=== PATIENT | female | born 1965 | race Caucasian/White ===

== ENCOUNTER 2018-03-24 18:50 | Emergency (ER) | payer BC ==
[2018-03-24 19:26] VITALS: BP 129/78
[2018-03-24] MEDS ORDERED: PHENERGAN WITH CODEINE SYRUP PO ONE (19:41)
[2018-03-24] MEDS ORDERED: DUONEB 0.5-3 MG/3 ml Neb IH ONE ×2 (19:41→19:54)
--- NOTE | 2018-03-24 19:44 | ERPHSYRPT ---
- History of Present Illness Time Seen by Provider: 03/24/18 19:42 Source: patient Exam Limitations: no limitations Patient Subjective Stated Complaint: began 1 week before thanksgiving. cold sx and nasal drainage. this lasted one week. began coughing 2 weeks, temp was 102. achy muscles and decreased appetite. nausea and facial pressure. feels burning in lungs presently Triage Nursing Assessment: diminished bilateral lower lung lobes. pt acting like she has general malaise. no coughing noted at present Physician History: c/o cough chest congestion began 1 week before thanksgiving. cold sx and nasal drainage. this lasted one week. began coughing 2 weeks, temp was 102. achy muscles and decreased appetite. nausea and facial pressure. feels burning in lungs presently Timing/Duration: week(s) Cough Quality/Degree: mild, dry cough Associated Symptoms: fever, chest pain/soreness, cough, nasal congestion, nasal drainage, shortness of breath International travel in last 2 weeks: No Allergies/Adverse Reactions: erythromycin base Allergy (Verified 02/18/16 16:09) Hives venom-honey bee [bee venom (honey bee)] Allergy (Verified 02/18/16 16:09) Home Medications: Cyclobenzaprine HCl 10 mg [Flexeril 10 MG] 10 mg PO TID PRN PRN 06/17/15 [ History] Gabapentin [Neurontin] 100 mg PO TID 06/17/15 [History] Hydrocodone Bit/Acetaminophen [[place] 5-325 Tablet] 1 each PO Q4-6HPRN PRN [History] Chrom Pilar/Brindal Bales [Garcinia Cambogia Tablet] 1 each PO .UNKONWN 06/03/16 [History] Hx Tetanus, Diphtheria Vaccination/Date Given: No Hx Influenza Vaccination/Date Given: No Hx Pneumococcal Vaccination/Date Given: No Immunizations Up to Date: Yes - Review of Systems Constitutional: No Fever, No Chills Eyes: No Symptoms Ears, Nose, & Throat: No Symptoms, Nose Congestion, Nose Discharge, Sinus Drainage Respiratory: Cough, No Cyanosis, No Dyspnea Cardiac: Chest Pain, No Edema, No Syncope Abdominal/Gastrointestinal: No Abdominal Pain, No Nausea, No Vomiting, No Diarrhea Genitourinary Symptoms: No Dysuria Musculoskeletal: No Back Pain, No Neck Pain Skin: No Rash Neurological: No Dizziness, No Focal Weakness, No Sensory Changes Psychological: No Symptoms Endocrine: No Symptoms All Other Systems: Reviewed and Negative - Past Medical History Pertinent Past Medical History: Yes Neurological History: No Pertinent History ENT History: No Pertinent History Cardiac History: No Pertinent History Respiratory History: No Pertinent History Endocrine Medical History: No Pertinent History Musculoskeletal History: Other GI Medical History: No Pertinent History History: No Pertinent History Psycho-Social History: Depression Other Medical History: BACK PAIN, hysterectomy - Past Surgical History Past Surgical History: Yes Neuro Surgical History: No Pertinent History Cardiac: No Pertinent History Respiratory: No Pertinent History Gastrointestinal: No Pertinent History Genitourinary: No Pertinent History Musculoskeletal: No Pertinent History Female Surgical History: Hysterectomy Other Surgical History: facial surgery, menicus tear right tear, laproscopy in abd, tonsils - Social History Smoking Status: Former smoker How long have you smoked: YRS Exposure to second hand smoke: No Drug Use: none Patient Lives Alone: No - Female History Hx Last Menstrual Period: hyst Hx Now: No - Nursing Vital Signs Nursing Vital Signs: Initial Vital Signs Temperature 98 F 03/24/18 19:07 Pulse Rate 65 03/24/18 19:07 Respiratory Rate 18 03/24/18 19:07 Blood Pressure 129/78 03/24/18 19:07 O2 Sat by Pulse Oximetry 100 03/24/18 19:07 Pain Scale Pain Intensity 6 - Physical Exam General Appearance: no apparent distress, alert Eye Exam: PERRL/EOMI, eyes nml inspection Ears, Nose, Throat Exam: normal ENT inspection, TMs normal, pharynx normal, moist mucous membranes Neck Exam: normal inspection, non-tender, supple, full range of motion Respiratory Exam: diminished breath sounds, No respiratory distress Cardiovascular Exam: regular rate/rhythm, normal heart sounds Gastrointestinal/Abdomen Exam: soft, No tenderness Back Exam: normal inspection, No CVA tenderness, No vertebral tenderness Extremity Exam: normal inspection, normal range of motion Neurologic Exam: alert, oriented x 3, cooperative, normal mood/affect, sensation nml, No motor deficits Skin Exam: normal color, warm, dry, No rash Lymphatic Exam: No adenopathy SpO2: 100 Oxygen Delivery: Room Air - Course Nursing assessment & vital signs reviewed: Yes - Radiology Exams Chest X-ray Interpretation: Reviewed by me (right lower lobe infiltrate) Ordered Tests: Active Orders 24 hr Category Date Time Status CHEST 2 VIEWS (PA AND LAT) Stat Exams 03/24/18 19:40 Taken CBC W DIFF Stat Lab 03/24/18 20:35 Completed CMP Stat Lab 03/24/18 20:35 Received TROPONIN Q3H Lab 03/24/18 20:35 Received TROPONIN Q3H Lab 03/24/18 22:45 Ordered TROPONIN Q3H Lab 03/25/18 01:45 Ordered TROPONIN Q3H Lab 03/25/18 04:45 Ordered TROPONIN Q3H Lab 03/25/18 07:45 Ordered Peak Expiratory Flow Rate ONCE RT 03/24/18 20:15 Active Respiratory Therapy Assessment DAILY RT 03/24/18 20:15 Active Medication Summary Discontinued Medications Generic Name Dose Route Start Last Admin Trade Name Freq PRN Reason Stop Dose Admin Albuterol/Ipratropium 3 ml 03/24/18 19:41 03/24/18 20:09 Duoneb 0.5-3 Mg/3 Ml Neb IH 03/24/18 19:42 3 ml STAT ONE Administration Albuterol/Ipratropium Confirm 03/24/18 19:54 Duoneb 0.5-3 Mg/3 Ml Neb Administered 03/24/18 19:55 Dose 3 ml IH .STK-MED ONE Ceftriaxone Sodium 1,000 mg 03/24/18 20:14 03/24/18 20:38 Rocephin 1000 Mg Inj IM 03/24/18 20:15 1,000 mg STAT ONE Administration Ceftriaxone Sodium Confirm 03/24/18 20:30 Rocephin 1000 Mg Inj Administered 03/24/18 20:31 Dose 1,000 mg .ROUTE .STK-MED ONE Lidocaine HCl Confirm 03/24/18 20:31 Xylocaine 1% Hcl 20 Ml Mdv Administered 03/24/18 20:32 Dose 1 ml .ROUTE .STK-MED ONE Promethazine HCl/Codeine 10 ml 03/24/18 19:41 03/24/18 20:37 Phenergan With Codeine Syrup PO 03/24/18 19:42 10 ml STAT ONE Administration Lab/Rad Data: Laboratory Result Diagrams 03/24/18 20:35 Laboratory Results 03/24/18 Range/Units 20:35 WBC 7.2 (4.0-10.5) K/mm3 RBC 4.38 (4.1-5.4) M/mm3 Hgb 12.7 (12.0-16.0) gm/dl Hct 40.8 (35-47) % MCV 93.2 (78-100) fl MCH 29.0 (26-32) pg MCHC 31.1 L (32-36) g/dl RDW 13.0 (11.5-14.0) % Plt Count 205 (150-450) K/mm3 MPV 11.4 H (6-9.5) fl Gran % 47.0 (36.0-66.0) % Eos # (Auto) 0.46 (0-0.5) Absolute Lymphs (auto) 2.73 (1.0-4.6) Absolute Monos (auto) 0.55 (0.0-1.3) Lymphocytes % 38.1 (24.0-44.0) % Monocytes % 7.7 (0.0-12.0) % Eosinophils % 6.4 H (0.00-5.0) % Basophils % 0.8 (0.0-0.4) % Absolute Granulocytes 3.36 (1.4-6.9) Basophils # 0.06 (0-0.4) - Progress Progress: improved Air Movement: good Blood Culture(s) Obtained: No Antibiotics given: Yes Counseled pt/family regarding: lab results, diagnosis, need for follow-up, rad results - Departure Time of Disposition: 20:21 Departure Disposition: Home Clinical Impression: Right lower lobe pneumonia Qualifiers: Pneumonia type: due to unspecified organism Qualified Code(s): J18.1 - Lobar pneumonia, unspecified organism Condition: Stable Critical Care Time: Yes Critical Care Time(excluding separately billable procedures): 30-74 minutes Referrals: KERI PRADHAN, EQUIPMENT SCHEDULER [Primary Care Provider] - Instructions: Pneumonia in Adults Additional Instructions: BOZENAANA PEARL was seen on 03/24/18 n the Emergency Room. At that time you were treated for an emergent condition, during your visit Laboratory, Radiology and/or other procedures may have been ordered. It is very important that you follow-up with your Primary Care Physician KERI PRADHAN within the next 24- 48 hours to review your Emergency Room visit and the final results of testing that was ordered. Some test results such as Urine Cultures, Blood Cultures, and other cultures if ordered will not be finalized for 24-48 hours. If you do not have a Primary Care Provider please call the medical records department at [phone] to obtain a copy of your results or you may sign into our patient portal to obtain these results by visiting us @ [email or web address] and completing the following steps: 1. Click on the Patient Portal link 2. Click the Patient Self Enrollment Link to complete the enrollment form and entering your 3. Once the enrollment form is completed you will receive an email with a temporary ID and password at the email address you provided. 4. Next choose a user name and password. Your user name must be at least 4 characters long and your password must be at least 4 characters long. 5. Choose a security question from the list and provide your answer to the question. If you already have signed into the Health Portal you may access your Health Care Information 01/11 by the following steps: 1. Login to our website @ [email or web address] 2. Enter your original user name and password. FAQS The [facility] Health Portal is an online tool that contains your Lab Results, Radiology Reports, Visit History, Discharge Instructions and Health Summary Lab and Radiology Results will not be available for 72 hours on the portal. The Portal is a secure site, passwords are encryted and URLs are re-written so they cannot be copied and pasted. You and authorized family members are the only ones who can access your Portal. Also there is a timeout feature that protects your information if you leave the Portal page open. If you have technical difficulty please use the Contact Us link on the page this will allow you to submit any questions you have regarding the Portal or you may contact the Medical Record Department at [phone]. Forms: Work/School Release Form Prescriptions: Amoxicillin/Potassium Clav [Augmentin Xr 1,000-62.5 Tab] 1 each PO BID #15 tab.er.12h Guaifenesin/Codeine Phosphate [Robitussin AC Syrup] 5 ml PO QID #118 ml
[2018-03-24] MEDS ORDERED: Rocephin 1000 MG INJ IM ONE (20:14)
[2018-03-24 20:26] VITALS: PULSE 66
[2018-03-24] MEDS ORDERED: Rocephin 1000 MG INJ ONE (20:30)
[2018-03-24] MEDS ORDERED: XYLOCAINE 1% HCL 20 ML MDV ONE (20:31)
[2018-03-24 20:42] LABS: BASOPHIL % 0.8 % (0.0-0.4); Basophil (Absolute #) 0.06 (0-0.4); Eosinophil % 6.4 % (0.00-5.0); Eosinophil (Absolute #) 0.46 (0-0.5); Granulocyte Absolute (ANC) 3.36 (1.4-6.9); Hematocrit 40.8 % (35-47); Hemoglobin 12.7 gm/dl (12.0-16.0); Lymphocyte (Absolute #) 2.73 (1.0-4.6); Lymphocytes % 38.1 % (24.0-44.0); Mean Cell Volume 93.2 fl (78-100); Mean Corpuscular Hgb Concent. 31.1 g/dl (32-36); Mean Platelet Volume 11.4 fl (6-9.5); Monocyte (Absolute #) 0.55 (0.0-1.3); Monocytes % 7.7 % (0.0-12.0); Platelet Count 205 K/mm3 (150-450); Red Blood Count 4.38 M/mm3 (4.1-5.4); White Blood Count 7.2 K/mm3 (4.0-10.5)
[2018-03-24 20:59] LABS: ALKALINE PHOSPHATASE 83 U/L (38-126); ANION GAP 11.3 MEQ/L (5-15); BLOOD UREA NITROGEN 17 mg/dL (7-17); CHLORIDE 104 mmol/L (98-107); Calcium 8.9 mg/dL (8.4-10.2); Carbon Dioxide 26 mmol/L (22-30); Glucose 94 mg/dL (74-106); Potassium 4.1 mmol/L (3.5-5.1); SGOT/AST 23 U/L (14-36); SGPT/ALT 14 U/L (0-35); SODIUM 137 mmol/L (137-145); Total Protein 7.3 g/dL (6.3-8.2)
[2018-03-24 21:18] VITALS: O2SAT 99
--- NOTE | 2018-03-25 08:30 | XRAY ---
Indication: Flulike symptoms. Short of breath and chest soreness. Comparison: None PA/lateral chest demonstrates minimal bibasilar atelectasis/scarring and tiny right base calcified granuloma. Remaining heart, lungs, and bony thorax unremarkable.
== END 2018-03-24 21:17 | disposition home or self-care (01) ==
LOC: ED 18:50
DX: J18.9 Pneumonia, unspecified organism (principal); Z79.899 Other long term (current) drug therapy
CPT/HCPCS: 36415; 71046; 80053; 84484; 85025; 94150; 94640; 96372; 99284; J0696; A9270-GY

== ENCOUNTER 2018-03-26 13:40 | Emergency (ER) | payer BC ==
[2018-03-26] MEDS ORDERED: TORAdol 30 mg Injection ONE (14:58)
[2018-03-26] MEDS ORDERED: TORAdol 30 mg Injection IM ONE (14:58)
--- NOTE | 2018-03-26 15:32 | ERPHSYRPT ---
- History of Present Illness Time Seen by Provider: 03/26/18 14:13 Source: patient, family Exam Limitations: no limitations Patient Subjective Stated Complaint: pt here fjor left lower arm pain since tuesday, she was in er for pneumonia, pt had blood drawn and she states she was stuck 2-3 times in that arm Triage Nursing Assessment: pt alert, walked in, resp easy, skin w.d.p, left hand with normal range of momvement, hand warm, nailbeds pink,radial pulse strong Physician History: PATIENT HAS PNEUMONIA AND HAD RECENT BLOOD DRAW LAST WEEK; NOW HAS PAIN IN LEFT ARM DISTAL AND PROXIMAL TO BLOOD DRAW; NO FEVER; NO cp OR SOB; NO PRIOR HX; RIGHT HANDED Occurred: yesterday Method of Injury: unknown Quality: constant, aching Severity of Pain-Max: moderate Severity of Pain-Current: moderate Extremities Pain Location: arm: left, elbow: left, forearm: left Modifying Factors: Improves With: movement (AFFRAVATES), pain medication (HELPS) Associated Symptoms: none Allergies/Adverse Reactions: erythromycin base Allergy (Verified 03/26/18 14:22) Hives venom-honey bee [bee venom (honey bee)] Allergy (Verified 03/26/18 14:22) Home Medications: Gabapentin [Neurontin] 100 mg PO TID 06/17/15 [History] Hx Tetanus, Diphtheria Vaccination/Date Given: No Hx Influenza Vaccination/Date Given: No Hx Pneumococcal Vaccination/Date Given: No Immunizations Up to Date: Yes - Review of Systems Constitutional: No Symptoms Eyes: No Symptoms Ears, Nose, & Throat: No Symptoms Respiratory: Cough, No Cyanosis, No Dyspnea, No Wheezing Cardiac: No Chest Pain, No Palpitations, No Syncope Abdominal/Gastrointestinal: No Abdominal Pain, No Nausea, No Vomiting, No Diarrhea Genitourinary Symptoms: No Symptoms Musculoskeletal: Arthralgias (LEFT ARM) Skin: No Symptoms Neurological: No Symptoms Psychological: No Symptoms Endocrine: No Symptoms Hematologic/Lymphatic: No Symptoms Immunological/Allergic: No Symptoms - Past Medical History Pertinent Past Medical History: Yes Neurological History: No Pertinent History ENT History: No Pertinent History Cardiac History: No Pertinent History Respiratory History: No Pertinent History Endocrine Medical History: No Pertinent History Musculoskeletal History: Other GI Medical History: No Pertinent History History: No Pertinent History Psycho-Social History: Depression Other Medical History: BACK PAIN, hysterectomy - Past Surgical History Past Surgical History: Yes Neuro Surgical History: No Pertinent History Cardiac: No Pertinent History Respiratory: No Pertinent History Gastrointestinal: No Pertinent History Genitourinary: No Pertinent History Musculoskeletal: No Pertinent History Female Surgical History: Hysterectomy Other Surgical History: facial surgery, menicus tear right tear, laproscopy in abd, tonsils - Social History Smoking Status: Former smoker How long have you smoked: YRS Exposure to second hand smoke: No Alcohol Use: None Drug Use: none Patient Lives Alone: No Significant Family History: no pertinent family hx - Female History Hx Last Menstrual Period: post Hx Now: No - Nursing Vital Signs Nursing Vital Signs: Initial Vital Signs Temperature 97.0 F 03/26/18 14:17 Pulse Rate 73 03/26/18 14:17 Respiratory Rate 18 03/26/18 14:17 Blood Pressure 119/69 03/26/18 14:17 O2 Sat by Pulse Oximetry 98 03/26/18 14:17 Pain Scale Pain Intensity 5 - Physical Exam General Appearance: mild distress, alert Eyes, Ears, Nose, Throat Exam: normal ENT inspection, TMs normal, pharynx normal , moist mucous membranes Neck Exam: normal inspection, non-tender, supple, full range of motion Cardiovascular/Respiratory Exam: chest non-tender, normal breath sounds, regular rate/rhythm, heart sounds normal, no JVD, no M/R/G, no respiratory distress Abdominal Exam: non-tender, soft, no organomegaly Back Exam: normal inspection, normal range of motion, No CVA tenderness Shoulder Exam: normal inspection, non-tender, no evidence of injury, normal ROM (WITH DISCOMFORT) Elbow/Forearm Exam: normal inspection, non-tender, normal ROM, No no evidence of injury (EVIDENCE OF LOCAL BLOOD DRAW; NO REDNESS; NO DRAINGE; NO SWELLING; NO LYMPHANGITIS OR ADENITIS) Wrist Exam: normal inspection, non-tender, no evidence of injury, normal ROM Hand Exam: normal inspection, non-tender, no evidence of injury, normal ROM DTR - Upper Extremity Exam: bicep (R): 4+, bicep (L): 4+ Neuro/Tendon Exam: normal sensation, normal motor functions, normal tendon functions, responds to pain, no evidence tendon injury Mental Status Exam: alert, oriented x 3, cooperative Skin Exam: normal color, warm, dry, No rash, No petechiae SpO2 Interpretation: normal SpO2: 99 Oxygen Delivery: Room Air - Course Nursing assessment & vital signs reviewed: Yes EKG Interpreted by Me: RATE (67), Sinus Rhythm, Left Brule Deviation, NORMAL INTERVALS, NORMAL QRS, NORMAL ST-T Rhythm Strip: Rate (67), Normal Sinus Rhythm Ordered Tests: Active Orders 24 hr Category Date Time Status EKG-ER Only STAT Care 03/26/18 14:31 Active Pulse Oximetry (ED) STAT Care 03/26/18 14:31 Active Re-Check Vital Signs STAT Care 03/26/18 14:31 Active Medication Summary Discontinued Medications Generic Name Dose Route Start Last Admin Trade Name Freq PRN Reason Stop Dose Admin Ketorolac Tromethamine 30 mg 03/26/18 14:58 03/26/18 15:01 Toradol 30 Mg Injection IM 03/26/18 14:59 30 mg STAT ONE Administration Ketorolac Tromethamine Confirm 03/26/18 14:58 Toradol 30 Mg Injection Administered 03/26/18 14:59 Dose 30 mg .ROUTE .STK-MED ONE - Progress Progress: improved, re-examined (AFTER MEDS AND EKG) Progress Note: 03/26/18 15:31 ekg DONE FOR ATYPICAL PRESENTATION AND WNL; GAVE TORADOL iM AND GOOD RELEIF; RECHECKED WITH AT BEDSIDE AND INSTRUCTIONS GIVEN Counseled pt/family regarding: diagnosis, need for follow-up - Departure Time of Disposition: 15:32 Departure Disposition: Home Clinical Impression: Arthralgia of left upper arm Condition: Stable Critical Care Time: No Referrals: SHERRI REID SIGNWRITER [Primary Care Provider] - Instructions: Arthritis and Exercise Additional Instructions: REST; Follow-up with family doctor as directed. Call for appointment. Return if any problems. If you smoke please stop. Call or follow up with your family doctor for assistance if you need it to stop. Please wear your seatbelt when driving. Have a nice day. Thank you for allowing us to participate in your care today. :o) Dr Cruz Boykin Prescriptions: Naproxen Sodium [Naproxen Sodium Ds] 550 mg PO Q8HPRN PRN #14 tablet PRN Reason: Pain
[2018-03-26 15:48] VITALS: BP 130/70; PULSE 78; O2SAT 98
== END 2018-03-26 15:49 | disposition home or self-care (01) ==
LOC: ED 13:40
DX: M79.632 Pain in left forearm (principal); M25.522 Pain in left elbow
CPT/HCPCS: 93005; 96372; 99284; J1885

== ENCOUNTER 2018-06-22 16:10 | Emergency (ER) | payer BC ==
[2018-06-22] MEDS ORDERED: BABY ASPIRIN 81 MG CHEW PO ONE (16:32)
[2018-06-22] MEDS ORDERED: TORAdol 30 mg Injection IV ONE (16:35)
--- NOTE | 2018-06-22 16:41 | ERPHSYRPT ---
<ANTHONY CONTRERAS HANNA - Last Filed: 06/22/18 19:00> - History of Present Illness Time Seen by Provider: 06/22/18 16:35 Historian: patient Exam Limitations: no limitations Patient Subjective Stated Complaint: ONSET CHEST PAIN AT 0330 TODAY. ALSO HAD DIAPHORESIS. STATES PAIN LET UP THIS AM AND THEN CAME BACK. Triage Nursing Assessment: TO ROOM PER W/C. SKIN W/D, COLOR NORMAL, RESP EASY. PATIENT HOLDING CHEST UNDER LEFT BREAST. MOANING OCCASIONALLY. Physician History: 53-year-old white female arrives with complaint of pain like a pulsating sensation in her left anterior chest worse with breathing symptoms since 2:00 this morning began while patient was watching TV. She states she is not short of breath but has pain with breathing she also states she is having nauseousness she has not had a cough. Past medical history includes depression, chronic back pain, pneumonia Past surgical history includes hysterectomy, facial surgery, meniscus surgery on the right, laparoscopy, tonsils Social history patient is a former smoker she denies drug or alcohol use. Timing/Duration: today (2 AM this morning) Activities at Onset: other (watching TV) Quality: other (feels like a pulsation) Location: other (Left anterior chest) Chest Pain Radiation: no radiation Severity of Pain-Max: moderate Severity of Pain-Current: moderate Modifying Factors: Improves With: other (Pain worse with breathing) Associated Symptoms: nausea, hurts to breathe, diaphoresis, No vomiting, No palpitations, No heartburn, No abdominal pain, No shortness of breath, No cough , No chills, No fever, No fatigue, No weakness, No swelling/lump in chest, No syncope, No rash, No headache, No dizziness, No edema, No back pain Prior Chest Pain/Cardiac Workup: no prior chest pain Nitro Today/Relief: no nitro taken today Aspirin Treatment Today: 81 mg x 4, provided by ED Allergies/Adverse Reactions: erythromycin base Allergy (Verified 06/22/18 16:30) Hives venom-honey bee [bee venom (honey bee)] Allergy (Verified 06/22/18 16:40) Home Medications: Gabapentin [Neurontin] 100 mg PO TID 06/17/15 [History] Albuterol Sulfate Mdi [Proair Hfa MDI] 1 puff IH Q4HPRN PRN 06/22/18 [ History] Buprenorphine [Butrans] 1 ea TOP WEEKLY 06/22/18 [History] Gabapentin [Gralise] 600 mg PO TID 06/22/18 [History] Levothyroxine Sodium 50 mcg PO DAILY 06/22/18 [History] Hx Tetanus, Diphtheria Vaccination/Date Given: Yes Hx Influenza Vaccination/Date Given: Yes Hx Pneumococcal Vaccination/Date Given: No - Review of Systems Constitutional: No Fever, No Chills Eyes: No Symptoms Ears, Nose, & Throat: No Symptoms Respiratory: Other (pain with breathing left chest), No Cough, No Cyanosis, No Dyspnea, No Dyspnea on Exertion (WHITE), No Stridor, No Wheezing Cardiac: Chest Pain (Pain like pulsation left anterior chest worse with breathing), No Edema, No Palpitations, No Syncope, No Orthopnea Abdominal/Gastrointestinal: Nausea, No Abdominal Pain, No Vomiting, No Diarrhea , No Constipation, No Hematemesis, No Hematochezia, No Melena, No Dysphagia, No Appetite Changes Genitourinary Symptoms: No Dysuria Musculoskeletal: No Back Pain, No Neck Pain Skin: No Rash Neurological: No Dizziness, No Focal Weakness, No Sensory Changes Psychological: No Symptoms Endocrine: No Symptoms All Other Systems: Reviewed and Negative - Past Medical History Pertinent Past Medical History: Yes Neurological History: No Pertinent History ENT History: No Pertinent History Cardiac History: No Pertinent History Respiratory History: No Pertinent History Endocrine Medical History: Hypothyroidism Musculoskeletal History: Other GI Medical History: No Pertinent History History: No Pertinent History Psycho-Social History: Depression Other Medical History: BACK PAIN, hysterectomy - Past Surgical History Past Surgical History: Yes Neuro Surgical History: No Pertinent History Cardiac: No Pertinent History Respiratory: No Pertinent History Gastrointestinal: No Pertinent History Genitourinary: No Pertinent History Musculoskeletal: No Pertinent History Female Surgical History: Hysterectomy Other Surgical History: facial surgery, menicus tear right tear, laproscopy in abd, tonsils - Social History Smoking Status: Former smoker How long have you smoked: YRS Exposure to second hand smoke: No Alcohol Use: None Drug Use: none Patient Lives Alone: No Significant Family History: no pertinent family hx - Female History Hx Now: No - Nursing Vital Signs Nursing Vital Signs: Initial Vital Signs Temperature 96.4 F 06/22/18 16:20 Pulse Rate 58 L 06/22/18 16:20 Respiratory Rate 16 06/22/18 16:20 Blood Pressure 113/72 06/22/18 16:20 O2 Sat by Pulse Oximetry 99 06/22/18 16:20 Pain Scale Pain Intensity 6 - Physical Exam General Appearance: moderate distress Eye Exam: PERRL/EOMI, eyes nml inspection Ears, Nose, Throat Exam: normal ENT inspection, moist mucous membranes Neck Exam: normal inspection, non-tender, supple, full range of motion Respiratory Exam: lungs clear, airway intact, other (pain with breathing left anterior chest), No chest tenderness, No respiratory distress, No diminished breath sounds, No accessory muscle use, No prolonged expirations, No crackles/ rales, No rhonchi, No wheezing Cardiovascular Exam: regular rate/rhythm, normal heart sounds, capillary refill <2 sec Gastrointestinal/Abdomen Exam: soft, No tenderness, No mass Back Exam: normal inspection, No CVA tenderness, No vertebral tenderness Extremity Exam: normal inspection, normal range of motion Neurologic Exam: alert, oriented x 3, cooperative, 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 Compared to March 26, 2018) - Radiology Exams Chest X-ray Interpretation: Discussed w/ radiologist (chest x-ray: Impression: Portable chest remains clear with incidental right base calcified granuloma. Heart and mediastinal structures within normal limits. Bony thorax intact. No new/acute findings.) Ordered Tests: Active Orders 24 hr Category Date Time Status Dobie Man STAT Care 06/22/18 16:33 Active EKG-ER Only STAT Care 06/22/18 16:32 Active IV Insertion STAT Care 06/22/18 16:32 Active Pulse Oximetry (ED) STAT Care 06/22/18 16:32 Active CHEST 1 VIEW (PORTABLE) Stat Exams 06/22/18 16:43 Completed AMYLASE Stat Lab 06/22/18 16:45 Completed CBC W DIFF Stat Lab 06/22/18 16:45 Completed CMP Stat Lab 03/14/19 16:45 Completed D-DIMER QUANTITATION Stat Lab 06/22/18 16:45 Completed LIPASE Stat Lab 06/22/18 16:45 Completed PROTIME WITH INR Stat Lab 06/22/18 16:45 Completed PTT Stat Lab 06/22/18 16:45 Completed TROPONIN Q3H Lab 06/22/18 16:45 Completed TROPONIN Q3H Lab 06/22/18 19:58 Completed TROPONIN Q3H Lab 06/22/18 22:45 Ordered TROPONIN Q3H Lab 06/23/18 01:45 Ordered TROPONIN Q3H Lab 06/23/18 04:45 Ordered Medication Summary Discontinued Medications Generic Name Dose Route Start Last Admin Trade Name Freq PRN Reason Stop Dose Admin Aspirin 324 mg 06/22/18 16:32 06/22/18 16:48 Baby Aspirin 81 Mg Chew PO 06/22/18 16:33 324 mg STAT ONE Administration Aspirin Confirm 06/22/18 16:46 Baby Aspirin 81 Mg Chew Administered 06/22/18 16:47 Dose 324 mg .ROUTE .STK-MED ONE Ketorolac Tromethamine 30 mg 06/22/18 16:35 06/22/18 16:47 Toradol 30 Mg Injection IV 06/22/18 16:36 30 mg STAT ONE Administration Ketorolac Tromethamine Confirm 06/22/18 16:46 Toradol 30 Mg Injection Administered 06/22/18 16:47 Dose 30 mg .ROUTE .STK-MED ONE Lab/Rad Data: Laboratory Result Diagrams 06/22/18 16:45 06/22/18 16:45 Laboratory Results 06/22/18 06/22/18 06/22/18 Range/Units 19:58 16:45 16:45 WBC (4.0-10.5) K/mm3 RBC (4.1-5.4) M/mm3 Hgb (12.0-16.0) gm/dl Hct (35-47) % MCV (78-100) fl MCH (26-32) pg MCHC (32-36) g/dl RDW (11.5-14.0) % Plt Count (150-450) K/mm3 MPV (6-9.5) fl Gran % (36.0-66.0) % Eos # (Auto) (0-0.5) Absolute Lymphs (auto) (1.0-4.6) Absolute Monos (auto) (0.0-1.3) Lymphocytes % (24.0-44.0) % Monocytes % (0.0-12.0) % Eosinophils % (0.00-5.0) % Basophils % (0.0-0.4) % Absolute Granulocytes (1.4-6.9) Basophils # (0-0.4) PT 12.1 (9.95-12.35) SECONDS INR 1.04 (0.8-3.0) APTT 29.4 (25.3-37.0) SECONDS D-Dimer [facility] Sodium (137-145) mmol/L Potassium (3.5-5.1) mmol/L Chloride (98-107) mmol/L Carbon Dioxide (22-30) mmol/L Anion Gap (5-15) MEQ/L BUN (7-17) mg/dL Creatinine (0.52-1.04) mg/dL Estimated GFR ML/MIN Glucose (74-106) mg/dL Calcium (8.4-10.2) mg/dL Total Bilirubin (0.2-1.3) mg/dL AST (14-36) U/L ALT (0-35) U/L Alkaline Phosphatase (38-126) U/L Troponin I < 0.012 < 0.012 (0.000-0.034) ng/mL Serum Total Protein (6.3-8.2) g/dL Albumin (3.5-5.0) g/dL Amylase (30-110) U/L Lipase (23-300) U/L 06/22/18 06/22/18 Range/Units 16:45 16:45 WBC 6.5 (4.0-10.5) K/mm3 RBC 4.62 (4.1-5.4) M/mm3 Hgb 13.4 (12.0-16.0) gm/dl Hct 42.6 (35-47) % MCV 92.2 (78-100) fl MCH 29.0 (26-32) pg MCHC 31.5 L (32-36) g/dl RDW 13.3 (11.5-14.0) % Plt Count 223 (150-450) K/mm3 MPV 11.0 H (6-9.5) fl Gran % 49.3 (36.0-66.0) % Eos # (Auto) 0.66 H (0-0.5) Absolute Lymphs (auto) 2.06 (1.0-4.6) Absolute Monos (auto) 0.50 (0.0-1.3) Lymphocytes % 31.7 (24.0-44.0) % Monocytes % 7.7 (0.0-12.0) % Eosinophils % 10.2 H (0.00-5.0) % Basophils % 1.1 (0.0-0.4) % Absolute Granulocytes 3.21 (1.4-6.9) Basophils # 0.07 (0-0.4) PT (9.95-12.35) SECONDS INR (0.8-3.0) APTT (25.3-37.0) SECONDS D-Dimer Sodium 140 (137-145) mmol/L Potassium 4.2 (3.5-5.1) mmol/L Chloride 102 (98-107) mmol/L Carbon Dioxide 30 (22-30) mmol/L Anion Gap 12.6 (5-15) MEQ/L BUN 23 H (7-17) mg/dL Creatinine 0.92 (0.52-1.04) mg/dL Estimated GFR > 60.0 ML/MIN Glucose 86 (74-106) mg/dL Calcium 9.7 (8.4-10.2) mg/dL Total Bilirubin 0.70 (0.2-1.3) mg/dL AST 25 (14-36) U/L ALT 18 (0-35) U/L Alkaline Phosphatase 76 (38-126) U/L Troponin I (0.000-0.034) ng/mL Serum Total Protein 7.7 (6.3-8.2) g/dL Albumin 4.3 (3.5-5.0) g/dL Amylase 84 (30-110) U/L Lipase 49 (23-300) U/L - Progress Progress: improved Air Movement: fair Progress Note: 06/22/18 16:41 This is a 53-year-old white female with history of depression, chronic back pain , pneumonia. Patient arrives with complaint of pain in the left anterior chest described as pulsating worse with breathing which began while watching TV this morning around 2:00 she is not short of breath she states she has not been coughing she is nauseous. Patient in moderate distress. On physical examination patient is alert oriented 3 HEENT within normal limits neck is supple lungs are clear but there is pain with breathing on the left anterior chest. Heart is regular rate and rhythm without murmur extremities full range of motion pulsatile symmetrical 2 over 4 abdomen soft nontender nondistended positive bowel sounds. EKG sinus bradycardia 53 bpm normal axis no acute ST or T wave changes are noted EKG is compared to March 26, 2018. Patient is on a Butran patch which she receives for her chronic back pain. Patient is given aspirin 324 mg orally will also give patient Toradol 30 mg IV. Awaiting CBC CMP troponin d-dimer and chest x-ray. 06/22/18 18:40 Patient improved after aspirin 324 mg and Toradol 30 mg IV. Patient's EKG sinus bradycardia 53 bpm normal axis no acute ST or T wave changes are noted patient's chest x-ray chest remains clear with incidental right base calcified granuloma heart and mediastinal structures within normal limits bony thorax is intact there are no new or acute findings. Patient's troponin within normal limits 1 chemistry essentially normal INR 1.04 CBC white blood cell 6.5 hemoglobin 13.4 hematocrit 42.6 platelets 223. Unfortunately d-dimer is not able to be performed at this time I've asked laboratory to have this sent to a nearby hospital and have it run. Expect repeat troponin will likely be be performed. Will await d-dimer. 06/22/18 18:59 The patient's case has been discussed with Dr. Root. She will send care of this patient secondary to shift change. - Departure Clinical Impression: Chest pain Condition: Stable Referrals: SHERRI REID POULTRY CUTTER [Primary Care Provider] - Additional Instructions: F/U with PCP for stress test or cardiology consult. If symptoms come back, please come to the ER. <NARENDRA ROOT - Last Filed: 06/22/18 20:35> - Progress Progress Note: 06/22/18 20:32 D dimer is normal. Second troponin is normal. I explained to the pt that we r/ o ACS now. It does not mean, she has no risk or has no angina. She should f/u with her PCP for a stress test, or consult Cardiology. Pt and understand, and will f/u. Blood Culture(s) Obtained: No Antibiotics given: No Will see patient in: office Counseled pt/family regarding: need for follow-up - Departure Time of Disposition: 20:34 Departure Disposition: Home Critical Care Time: No
[2018-06-22] MEDS ORDERED: TORAdol 30 mg Injection ONE (16:46)
[2018-06-22] MEDS ORDERED: BABY ASPIRIN 81 MG CHEW ONE (16:46)
[2018-06-22 16:53] LABS: BASOPHIL % 1.1 % (0.0-0.4); Basophil (Absolute #) 0.07 (0-0.4); Eosinophil % 10.2 % (0.00-5.0); Eosinophil (Absolute #) 0.66 (0-0.5); Granulocyte Absolute (ANC) 3.21 (1.4-6.9); Granulocytes % 49.3 % (36.0-66.0); Hematocrit 42.6 % (35-47); Hemoglobin 13.4 gm/dl (12.0-16.0); Lymphocyte (Absolute #) 2.06 (1.0-4.6); Lymphocytes % 31.7 % (24.0-44.0); Mean Cell Volume 92.2 fl (78-100); Mean Corpuscular Hgb Concent. 31.5 g/dl (32-36); Monocytes % 7.7 % (0.0-12.0); Platelet Count 223 K/mm3 (150-450); Red Blood Count 4.62 M/mm3 (4.1-5.4); Red Cell Distribution Width 13.3 % (11.5-14.0); White Blood Count 6.5 K/mm3 (4.0-10.5)
--- NOTE | 2018-06-22 16:55 | XRAY ---
Indication: Chest pain. Comparison: April 07, 2018. Portable chest remains clear again with incidental right base calcified granuloma. Heart and mediastinal structures within normal limits. Bony thorax intact. No new/acute findings.
[2018-06-22 17:00] LABS: INR 1.04 (0.8-3.0); PROTIME 12.1 SECONDS (9.95-12.35)
[2018-06-22 17:02] LABS: PTT 29.4 SECONDS (25.3-37.0)
[2018-06-22 17:04] LABS: ALBUMIN 4.3 g/dL (3.5-5.0); ALKALINE PHOSPHATASE 76 U/L (38-126); AMYLASE 84 U/L (30-110); ANION GAP 12.6 MEQ/L (5-15); BLOOD UREA NITROGEN 23 mg/dL (7-17); CHLORIDE 102 mmol/L (98-107); Calcium 9.7 mg/dL (8.4-10.2); Carbon Dioxide 30 mmol/L (22-30); Creatinine 1 0.92 mg/dL (0.52-1.04); Glucose 86 mg/dL (74-106); LIPASE 49 U/L (23-300); Potassium 4.2 mmol/L (3.5-5.1); SGOT/AST 25 U/L (14-36); SGPT/ALT 18 U/L (0-35); SODIUM 140 mmol/L (137-145); Total Protein 7.7 g/dL (6.3-8.2)
[2018-06-22 20:50] VITALS: BP 105/63; PULSE 56; O2SAT 98
== END 2018-06-22 21:00 | disposition home or self-care (01) ==
LOC: ED 16:10
DX: R07.9 Chest pain, unspecified (principal); F32.9 Major depressive disorder, single episode, unspecified; Z79.899 Other long term (current) drug therapy; E03.9 Hypothyroidism, unspecified
CPT/HCPCS: 36000; 36415; 71045; 80053; 82150; 83690; 84484; 85025; 85379; 85610; 85730; 93005; 93041; 96374; 99284; J1885; A9270-GY

== ENCOUNTER 2018-09-20 11:18 | Day surgery (SDC) | payer BC ==
[2018-09-20] MEDS ORDERED: Lactated Ringers 1,000 ML IV SCH (12:00)
[2018-09-20 12:09] VITALS: O2SAT 98
[2018-09-20 15:02] VITALS: BP 130/88; PULSE 68
--- NOTE | 2018-09-21 09:02 | OP ---
SURGERY DATE: 09/20/18 SURGERY TIME: 1345 PREOPERATIVE DIAGNOSIS: 1. EPIGASTRIC PAIN. 2. HIATAL HERNIA. 3. DUE FOR SCREENING COLONOSCOPY. POSTOPERATIVE DIAGNOSIS: 1. LARGE HIATAL HERNIA. 2. GASTRITIS. 3. AGE DUE FOR SCREENING COLONOSCOPY. PROCEDURE: 1. EGD with antral biopsy. 2. Biopsy of distal esophagus. 3. Colonoscopy to terminal ileum. SURGEON: Dr. David Grant. ANESTHESIA: MAC. SPECIMENS: 1. Antral biopsy. 2. Distal esophagus. COMPLICATIONS: None. ESTIMATED BLOOD LOSS: Minimal. FINDINGS: Large hiatal hernia measuring 7-8 cm. Mild gastritis. Small diverticulum in the sigmoid colon. PATIENT PRESENTATION: This patient presents with epigastric pain, history of hiatal hernia as well as age due for screening colonoscopy. After discussing risks and benefits of EGD/colonoscopy, the patient wishes to proceed. DESCRIPTION OF PROCEDURE: The patient was brought to the endoscopy suite. Placed in the left lateral decubitus position. Placed under MAC anesthesia. Gastroscope was inserted in the mouth. Directly, it was advanced to the esophagus. Esophagus traversed. Stomach was entered. The pylorus was visualized. There did seem to be some chronic inflammation of the pylorus and it was slightly narrowed and did take a little bit of pressure to get through the pylorus with the scope. After this was pushed through the first time, the scope then passed easily after that. It could be more of spasm or mild stricture of the pylorus, but the 1st, 2nd, and 3rd portions of the duodenum were evaluated and appeared normal. The scope withdrawn back in the antrum. There was mild antral gastritis. A couple biopsies were taken of the antrum for Helicobacter pylori testing. The scope was retroflexed. A large hiatal hernia was visualized. The scope was withdrawn. The Z line was at 33 cm. The diaphragmatic hiatus was at 40-42 cm. This was a fairly sizable hiatal hernia. The stomach was desufflated. Scope further withdrawn. A couple biopsies of the distal esophagus were also taken. After the esophagus was biopsied, the scope was further withdrawn. Attention turned to the colonoscopy. Rectal exam was performed without abnormality. Scope was advanced in the rectum. The scope was slowly and gently advanced to the cecum with some external pressure. The bowel prep was quite good. The appendiceal orifice and ileocecal valve were clearly identified. The terminal ileum was evaluated after intubating the valve. The terminal ileum appeared normal. The scope was slowly withdrawn. The scope was withdrawn throughout the colon all the way to the rectum. There were some small diverticulum. Otherwise, no abnormalities. Retroflexion performed in the rectum with some mild internal hemorrhoids. Scope was straightened. The rectum desufflated and scope withdrawn. Patient was recovered and taken to PACU in stable condition with plans to start proton pump inhibitor therapy and next colonoscopy in 10 years unless symptoms develop. We will try proton pump inhibitor therapy first to see if that resolves her acid reflux symptoms. However, she could potentially be a candidate for a hiatal hernia repair if medical management unsuccessful.
== END 2018-09-20 15:13 | disposition home or self-care (01) ==
LOC: SDC 11:18
PROVIDERS: ATTEND Surgery
DX: Z12.11 Encounter for screening for malignant neoplasm of colon (principal); K29.70 Gastritis, unspecified, without bleeding; K44.9 Diaphragmatic hernia without obstruction or gangrene; R10.13 Epigastric pain; K64.8 Other hemorrhoids
CPT/HCPCS: 82962